=== PATIENT | female | born 1955 | race Caucasian/White ===

== ENCOUNTER 2022-11-14 23:24 | Outpatient (CLI) | payer OTHER | END 2022-11-14 23:25 | disposition critical access hospital (66) | LOC: EMS 23:24 | DX: S09.90XA Unspecified injury of head, initial encounter (principal); R11.0 Nausea; M54.2 Cervicalgia; R10.31 Right lower quadrant pain; M25.571 Pain in right ankle and joints of right foot; Y93.K9 Activity, other involving animal care; W00.0XXA Fall on same level due to ice and snow, initial encounter; Y92.099 Unspecified place in other non-institutional residence as the place of occurrence of the external cause | CPT/HCPCS: A0425; A0427 ==